=== PATIENT | male | born 1955 | race Asian ===

== ENCOUNTER 2022-06-17 11:00 | Day surgery (SDC) | payer OTHER ==
[~2022-06-17] VITALS: Ht 172.7 cm; Wt 69.4 kg
[2022-06-17] MEDS ORDERED: LIDOCAINE 1% 500 MG/50 ML VIAL ONE (13:14)
[2022-06-17] MEDS ORDERED: LIDOCAINE 2% 100 MG/5 ML UJET TP ONE (13:15)
[2022-06-17] MEDS ORDERED: BUPIVACAINE-MPF/EPI 0.25% 30 ML VIAL INJ ONE (13:15)
[2022-06-17] MEDS ORDERED: SEVOFLURANE 250 ML BTL INH ONE (13:21)
[2022-06-17] MEDS ORDERED: fentaNYL citrate 0.05 MG/ML VIAL ONE (13:29)
[2022-06-17] MEDS ORDERED: ATROPINE 0.4 MG/ML VIAL ONE (14:05)
[2022-06-17] MEDS ORDERED: PROPOFOL 200 MG/20 ML VIAL IV ONE (14:05)
[2022-06-17] MEDS ORDERED: ONDANSETRON 4 MG/2 ML VIAL ONE (14:05)
[2022-06-17] MEDS ORDERED: SUCCINYLCHOLINE CHLORIDE 200 MG/10 ML VIAL IVP ONE (14:05)
[2022-06-17] MEDS ORDERED: KETOROLAC 30 MG/ML VIAL ONE (14:05)
[2022-06-17] MEDS ORDERED: hydrALAZINE 20 MG/ML VIAL IVP PRN (14:28)
[2022-06-17] MEDS ORDERED: LABETALOL 20 MG/4 ML VIAL IVP PRN (14:28)
[2022-06-17] MEDS ORDERED: METOCLOPRAMIDE 10 MG/2 ML INJ VIAL IVP PRN (14:28)
[2022-06-17] MEDS ORDERED: LACTATED RINGERS 1,000 ML IV SCH (14:30)
[2022-06-17] MEDS ORDERED: HYDROmorphone 1 MG/ML AMP IVP PRN (14:30)
== END 2022-06-17 15:30 | disposition home or self-care (01) ==
LOC: MDS 11:00 → MMU 11:03 → MDS 15:30
PROVIDERS: ATTEND Surgery
DX: K64.8 Other hemorrhoids (principal); I10 Essential (primary) hypertension; E78.00 Pure hypercholesterolemia, unspecified; Z79.899 Other long term (current) drug therapy; Z20.822 Contact with and (suspected) exposure to COVID-19
CPT/HCPCS: 46260; 71045; 87426; 93005; J0330; J0461; J1885; J2001; J2405; J2704; J3010; J3490; J7120